=== PATIENT | female | born 1965 | race Caucasian/White ===

== ENCOUNTER → 2017-03-21 | Outpatient (CLI) | payer BC ==
[~2017-03-21] MED LIST: FLX5 PO
--- NOTE | 2017-03-22 07:43 | MAMMOGRAPHY REPORT ---
BILATERAL DIGITAL SCREENING MAMMOGRAM TOMOSYNTHESIS WITH CAD: 03/21/2017 CLINICAL HISTORY: Routine screening. Patient has no complaints. TECHNIQUE: Bilateral breast tomosynthesis in addition to standard 2D mammography was performed. Curre nt study was also evaluated with a Computer Aided Detection (CAD) system. COMPARISON: Screening mammograms dated 03/08/2010. BREAST COMPOSITION: The tissue of both breasts is heterogeneously dense, which may obscure small mas ses. FINDINGS: There is a possible round 17 mm mass in the posterior right breast, along the posterior ni pple line on the MLO view, possibly in the 12:00 axis. Additional targeted ultrasound and possible a dditional mammographic views are recommended, although this could represent a cyst. Two 6 mm nodular asymmetries in the anterior left breast both medially and laterally are increasingly conspicuous com paring to the prior 2010 mammogram. Although they could represent normal overlapping tissue, additio nal spot compression tomosynthesis views and possibly ultrasound are recommended. No other suspicious mass, architectural distortion or cluster of microcalcifications is seen evert acuña. IMPRESSION: ACR BI-RADS CATEGORY 0: INCOMPLETE EVALUATION: NEED ADDITIONAL IMAGING EVALUATION The possible 17 mm mass in the posterior right breast, and 6 mm nodular asymmetries in the medial and lateral anterior left breast need additional imaging evaluation. The patient will be called to schedule an appointment. Approximately 10% of breast cancers are not detected with mammography. A negative mammographic report should not delay biopsy if a clinically suggestive mass is present. Bianca Norwood M.D. ay/:03/21/2017 18:00:23 [employer] Manager [employer]: Arlene CALLE(R)(M), [facility] letter sent: Addl Imaging 0 BI-RADS Code: ACR BI-RADS Category 0: Incomplete Evaluation: Need Additional Imaging Evaluation
== END | disposition home or self-care (01) ==
LOC: C.MAMM 14:30
PROVIDERS: ATTEND Nurse Practitioner Family
DX: Z12.31 Encounter for screening mammogram for malignant neoplasm of breast (principal)

== ENCOUNTER → 2017-10-23 | Outpatient (CLI) | payer OTHER ==
--- NOTE | 2017-10-23 10:05 | DIAGNOSTIC IMAGING REPORT ---
L KNEE 1 OR 2 VIEWS ROUTINE CLINICAL HISTORY: Pain following fall. COMPARISON: None FINDINGS: Alignment of left knee is anatomic. No displaced fracture is noted. A lucency projecting over the mid aspect of the patella is noted. There is a suspected left knee joint effusion. Joint spaces are preserved. IMPRESSION: 1. Lucency projecting near the patella which is probably artifactual although a nondisplaced patellar fracture could appear similar. 2. Suspected left knee joint effusion. Electronically signed by: Kashmir Mack M.D. 10/23/2017 10:04 AM Dictated Date/Time: 10/23/2017 10:02 AM
--- NOTE | 2017-10-23 10:06 | DIAGNOSTIC IMAGING REPORT ---
R KNEE 1 OR 2 VIEWS ROUTINE CLINICAL HISTORY: Bilateral knee pain following fall. COMPARISON: None FINDINGS: Alignment of the right knee is anatomic. No acute fracture or joint effusion is noted. Joint spaces are preserved. IMPRESSION: No acute fracture or joint effusion of the right knee. Electronically signed by: Kashmir Mack M.D. 10/23/2017 10:05 AM Dictated Date/Time: 10/23/2017 10:05 AM
== END | disposition home or self-care (01) ==
LOC: C.RAD1850 09:45
PROVIDERS: ATTEND Nurse Practitioner Family
DX: M25.561 Pain in right knee (principal); W00.0XXA Fall on same level due to ice and snow, initial encounter